=== PATIENT | female | born 1965 | race African-American/Black ===

== ENCOUNTER 2022-10-18 02:49 | Emergency (ER) | payer MEDICAID ==
[~2022-10-18] VITALS: Ht 165.1 cm; Wt 79.0 kg
[~2022-10-18 02:49] MED LIST: AMOX-424 MT; NAPR-1176 MT; T3 PO
[2022-10-18 02:58] VITALS: BP 148/84; O2SAT 98
[2022-10-18] MEDS ORDERED: HYDR28OI2 TP (05:58)
[2022-10-18] MEDS ORDERED: CEPH500C2 MT (05:58)
[2022-10-18 06:04] VITALS: PULSE 95; RESP 16; TEMP 98.7
== END 2022-10-18 06:04 | disposition home or self-care (01) ==
LOC: ER 02:49
DX: S20.462A Insect bite (nonvenomous) of left back wall of thorax, initial encounter (principal); X58.XXXA Exposure to other specified factors, initial encounter; Y93.89 Activity, other specified; Y92.89 Other specified places as the place of occurrence of the external cause; Y99.8 Other external cause status
CPT/HCPCS: 99281; 99283

== ENCOUNTER 2023-12-28 21:03 | Emergency (ER) | payer MEDICAID ==
[~2023-12-28] VITALS: Ht 165.1 cm; Wt 68.0 kg
[~2023-12-28 21:03] MED LIST changes: +CEPH500C2 MT; +HYDR28OI2 TP
[2023-12-28 21:12] VITALS: BP 157/84; PULSE 84; RESP 16; TEMP 98.4; O2SAT 98
[2023-12-28] MEDS: LIDOCAINE HCL/PF 1% 10 MG/ML 5ML VIAL INFIL ONE (22:00)
[2023-12-28] MEDS: BACITRACIN ZINC OINT UDPKT TOP ONE (22:00)
[2023-12-28] MEDS: TETANUS, DIPHTHERIA, PERTUSSIS VAC/PF 0.5ML (>10YR OLD) IM ONE (22:00)
== END 2023-12-29 00:09 | disposition home or self-care (01) ==
LOC: ER 21:03
DX: S01.81XA Laceration without foreign body of other part of head, initial encounter (principal); I10 Essential (primary) hypertension; Z88.2 Allergy status to sulfonamides; Z79.1 Long term (current) use of non-steroidal anti-inflammatories (NSAID); W22.8XXA Striking against or struck by other objects, initial encounter; Y93.89 Activity, other specified; Y92.89 Other specified places as the place of occurrence of the external cause; Y99.8 Other external cause status
CPT/HCPCS: 99285; 70450; 90715; 12013; 90471; J3490

== ENCOUNTER 2024-01-03 20:04 | Emergency (ER) | payer MEDICAID ==
[~2024-01-03] VITALS: Ht 368.3 cm; Wt 73.0 kg
[2024-01-03 20:10] VITALS: BP 136/86; RESP 20; TEMP 98.3; O2SAT 100
[2024-01-03 20:11] VITALS: PULSE 79; O2SAT 98
== END 2024-01-03 21:19 | disposition home or self-care (01) ==
LOC: ER 20:04
DX: S01.81XD Laceration without foreign body of other part of head, subsequent encounter (principal); I10 Essential (primary) hypertension; Z48.02 Encounter for removal of sutures; Z88.2 Allergy status to sulfonamides; X58.XXXD Exposure to other specified factors, subsequent encounter
CPT/HCPCS: 99281

== ENCOUNTER 2024-09-26 16:47 | Emergency (ER) | payer MEDICAID ==
[~2024-09-26] VITALS: Ht 160 cm; Wt 73.0 kg
[2024-09-26 17:07] VITALS: O2SAT 100
[2024-09-26] MEDS: KETOROLAC 30MG/ML VIAL IM ONE (19:28)
[2024-09-26] MEDS ORDERED: KETO10TA2 MT (20:22)
[2024-09-26 20:40] VITALS: BP 181/65; PULSE 61; RESP 12; TEMP 36.7; O2SAT 100
== END 2024-09-26 20:47 | disposition home or self-care (01) ==
LOC: ER 16:47
DX: S62.602A Fracture of unspecified phalanx of right middle finger, initial encounter for closed fracture (principal); I10 Essential (primary) hypertension; Z88.2 Allergy status to sulfonamides; Z79.899 Other long term (current) drug therapy; Z98.890 Other specified postprocedural states; W01.0XXA Fall on same level from slipping, tripping and stumbling without subsequent striking against object, initial encounter; Y93.89 Activity, other specified; Y92.89 Other specified places as the place of occurrence of the external cause; Y99.8 Other external cause status
CPT/HCPCS: 73130; 29130; 96372; 99283; J1885; Z7610